=== PATIENT | male | born 1995 | race Caucasian/White ===

== ENCOUNTER 2023-02-17 19:10 | Emergency (ER) | payer OTHER ==
[~2023-02-17] VITALS: Ht 182.9 cm; Wt 39.5 kg
[2023-02-17] MEDS ORDERED: XYOSTED50 MG/0.5 SUB-Q (19:33)
[2023-02-17 21:23] VITALS: BP 133/61
== END 2023-02-17 21:24 | disposition home or self-care (01) ==
LOC: ED 19:10
DX: S91.201A Unspecified open wound of right great toe with damage to nail, initial encounter (principal); Z88.8 Allergy status to other drugs, medicaments and biological substances; X58.XXXA Exposure to other specified factors, initial encounter
CPT/HCPCS: 99283